=== PATIENT | male | born 1935 | race Caucasian/White ===

== ENCOUNTER 2025-05-03 11:11 | Outpatient (CLI) | payer MEDICARE, BC | END 2025-05-03 11:12 | disposition home or self-care (01) | LOC: CSHWCC 11:11 | PROVIDERS: ATTEND Nurse Practitioner Family | DX: L89.624 Pressure ulcer of left heel, stage 4 (principal); L89.151 Pressure ulcer of sacral region, stage 1; I87.332 Chronic venous hypertension (idiopathic) with ulcer and inflammation of left lower extremity; L97.929 Non-pressure chronic ulcer of unspecified part of left lower leg with unspecified severity; Z74.09 Other reduced mobility | CPT/HCPCS: 15271; Q4133 ==

== ENCOUNTER 2025-05-10 10:11 | Outpatient (CLI) | payer MEDICARE, BC | END 2025-05-10 10:12 | disposition home or self-care (01) | LOC: CSHWCC 10:11 | PROVIDERS: ATTEND Nurse Practitioner Family | DX: L89.624 Pressure ulcer of left heel, stage 4 (principal); L89.151 Pressure ulcer of sacral region, stage 1; I87.332 Chronic venous hypertension (idiopathic) with ulcer and inflammation of left lower extremity; L97.929 Non-pressure chronic ulcer of unspecified part of left lower leg with unspecified severity; Z74.09 Other reduced mobility | CPT/HCPCS: 15271; Q4133 ==

== ENCOUNTER 2025-05-17 13:05 | Outpatient (CLI) | payer MEDICARE, BC | END 2025-05-17 13:06 | disposition home or self-care (01) | LOC: CSHWCC 13:05 | PROVIDERS: ATTEND Nurse Practitioner Family | DX: L89.624 Pressure ulcer of left heel, stage 4 (principal); L89.151 Pressure ulcer of sacral region, stage 1; I87.332 Chronic venous hypertension (idiopathic) with ulcer and inflammation of left lower extremity; L97.929 Non-pressure chronic ulcer of unspecified part of left lower leg with unspecified severity; Z74.09 Other reduced mobility | CPT/HCPCS: 11042; 99212; G0463 ==

== ENCOUNTER 2025-05-24 10:25 | Outpatient (CLI) | payer MEDICARE, BC | END 2025-05-24 10:26 | disposition home or self-care (01) | LOC: CSHWCC 10:25 | PROVIDERS: ATTEND Nurse Practitioner Family | DX: L89.624 Pressure ulcer of left heel, stage 4 (principal); L89.151 Pressure ulcer of sacral region, stage 1; L89.522 Pressure ulcer of left ankle, stage 2; I87.332 Chronic venous hypertension (idiopathic) with ulcer and inflammation of left lower extremity; L97.929 Non-pressure chronic ulcer of unspecified part of left lower leg with unspecified severity; L08.9 Local infection of the skin and subcutaneous tissue, unspecified; Z74.09 Other reduced mobility | CPT/HCPCS: 11042; 15275; Q4133 ==

== ENCOUNTER 2025-06-07 09:42 | Outpatient (CLI) | payer MEDICARE, BC | END 2025-06-07 09:43 | disposition home or self-care (01) | LOC: CSHWCC 09:42 | PROVIDERS: ATTEND Nurse Practitioner Family | DX: L89.624 Pressure ulcer of left heel, stage 4 (principal); L89.522 Pressure ulcer of left ankle, stage 2; S70.312D Abrasion, left thigh, subsequent encounter; I87.332 Chronic venous hypertension (idiopathic) with ulcer and inflammation of left lower extremity; I70.244 Atherosclerosis of native arteries of left leg with ulceration of heel and midfoot; L97.429 Non-pressure chronic ulcer of left heel and midfoot with unspecified severity; Z74.09 Other reduced mobility | CPT/HCPCS: 11042; 99215; G0463 ==

== ENCOUNTER 2025-06-07 10:24 | Emergency (ER) | payer MEDICARE, BC ==
[2025-06-07 11:16] LABS: #Basophils 0.03 10x3/uL (0.0-0.2); #Eosinophils 0.04 10x3/uL (0.0-0.5); #Monocytes 0.70 10x3/uL (0.0-1.1); #Neutrophils 7.51 10x3/uL (1.5-8.4); %Basophils 0.3 % (0.0-2.0); %Eosinophils 0.4 % (0.0-6.0); %Lymphocytes 11.7 % (18.0-47.0); %Monocytes 7.4 % (0.0-10.0); %Neutrophils 79.7 % (40.0-75.0); Hematocrit 32.8 % (38.8-50.0); Hemoglobin 10.9 g/dL (13.5-17.5); Mean Corpuscular Hemoglobin 29.5 pg (27.0-33.0); Mean Corpuscular Volume 88.9 fL (81.2-95.1); Platelet Count 295 10x3/uL (150-450); Red Blood Cell (RBC) Count 3.69 10x6/uL (4.32-5.72); White Blood Cell (WBC) Count 9.43 10x3/uL (3.5-10.5)
[2025-06-07 11:36] LABS: Glucose, Urine (Dipstick) Normal (Negative); Leukocyte Negative (Negative); Protein, Urine (Dipstick) Negative (Neg-Trace); Specific Gravity, Urine 1.005 (1.005-1.030)
[2025-06-07 12:01] LABS: ALT (SGPT) 22 U/L (Less than 45); AST (SGOT) 24 U/L (11-34); Albumin 2.7 g/dL (3.1-4.5); Alkaline Phosphatase 84 U/L (40-110); Anion Gap 14 mmol/L (10-20); BUN (Urea Nitrogen) 34 mg/dL (8.4-25.7); Bilirubin, Total 1.0 mg/dL (0.3-1.2); Calc. Creatinine Clearance 0 mL/min (70-130); Calcium 9.0 mg/dL (7.8-10.44); Carbon Dioxide 25 mmol/L (23-31); Chloride 97 mmol/L (98-107); Globulin 3.1 g/dL (2.4-3.5); Glucose 95 mg/dL (83-110); Potassium 3.9 mmol/L (3.5-5.1); Sodium 132 mmol/L (136-145)
[2025-06-07 12:11] LABS: CAUTI Indications for Culture Pelvic or flank pain; RBC/HPF None Seen HPF (0-3); WBC/HPF None Seen HPF (0-3)
[2025-06-07 12:13] LABS: Bacteria/HPF None Seen HPF (None Seen)
[2025-06-07 12:14] LABS: Urine Culture Reflex No No
== END 2025-06-07 12:40 | disposition home or self-care (01) ==
LOC: CSHERS 10:24
DX: L08.9 Local infection of the skin and subcutaneous tissue, unspecified (principal); I11.0 Hypertensive heart disease with heart failure; I50.9 Heart failure, unspecified
CPT/HCPCS: 36415; 80053; 81001; 83605; 85025; 99283